=== PATIENT | female | born 1995 ===

== ENCOUNTER 2024-07-12 06:50 | Outpatient (REF) | payer OTHER, SELFPAY ==
--- NOTE | ~2024-07-12 | US_ITS ---
EXAMINATION: US PELVIS COMPLETE US PELVIS ENDOVAGINAL CLINICAL INFORMATION: INTERMENSTRUAL SPOTTING COMPARISON: None. TECHNIQUE: Transabdominal and transvaginal images of the pelvis were obtained. FINDINGS: UTERUS: Anteverted. Normal size and contour, measuring 7.8 x 3.2 x 4.3 cm (cervix to fundus x AP x transverse). Uniform, homogeneous endometrium measures 0.7 cm in width. RIGHT OVARY: Normal size and echogenicity measuring 2.2 x 1.8 x 1.9 cm, volume 4.0 mL. LEFT OVARY: Normal size and echogenicity measuring 3.1 x 2.3 x 2.6 cm, volume 9.9 mL. Left ovarian cystic focus versus dominant follicle measuring 1.8 x 1.4 x 1.8 cm. FREE FLUID: No pelvic free fluid. US/US pelvic and transvaginal IMPRESSION: Left ovarian cystic focus versus dominant follicle measuring 1.8 x 1.4 x 1.8 cm. Electronically signed by: Elmer Mauro MD 07/12/2024 10:35 AM [facility]
== END 2024-07-12 06:51 | disposition home or self-care (01) ==
LOC: HO.UMASIMG 06:50
PROVIDERS: Visit Provider Nurse Practitioner Women's Health
DX: N94.11 Superficial (introital) dyspareunia (principal); N92.6 Irregular menstruation, unspecified
CPT/HCPCS: 76830; 76856

== ENCOUNTER 2025-03-07 06:24 | Outpatient (REF) | payer OTHER, SELFPAY ==
--- NOTE | ~2025-03-07 | US_ITS ---
CLINICAL HISTORY: ABD BLOATING US abdomen complete Comparison: None provided Findings: The visualized pancreas is normal. The aorta and inferior vena cava are normal caliber. The liver is normal in size and echotexture. There is no intrahepatic bile duct dilatation. The common duct is 1 mm in diameter. The gallbladder is normal. There is no sonographic Solares sign. The main portal vein is antegrade. The right kidney is 9.9 cm in length. The left kidney is 9.9 cm in length. The spleen is normal. No ascites. IMPRESSION: 1. Normal complete abdominal ultrasound. This document has been electronically signed by: Mariluz Hough MD on 03/08/2025 20:21:06
== END 2025-03-07 06:25 | disposition home or self-care (01) ==
LOC: HO.UMASIMG 06:24
PROVIDERS: Visit Provider Family Medicine
DX: R14.0 Abdominal distension (gaseous) (principal); E22.1 Hyperprolactinemia
CPT/HCPCS: 76700

== ENCOUNTER → 2025-03-07 08:30 | Outpatient (BNV) | payer OTHER, SELFPAY | PROVIDERS: Visit Provider Radiology Diagnostic Radiology | DX: R14.0 Abdominal distension (gaseous) (principal) | CPT/HCPCS: 76700 ==